=== PATIENT | male | born 1965 | race Caucasian/White ===

== ENCOUNTER 2017-09-15 05:05 | Inpatient (IN) | payer BC ==
[2017-09-15] VITALS (16 sets, daily range): BP systolic 101–129; BP diastolic 60–83
[~2017-09-15] VITALS: Ht 167.6 cm; Wt 61.9 kg
[~2017-09-15 05:05] MED LIST: CLEOCIN300 MG PO; GLUCOTROL XL2.5 MG PO; LORTAB 5-325 M1 EACH PO; METFORMIN HCL1000 MG PO; NAPROSYN500 MG PO; SILVADENE20 GM TP
[2017-09-15 05:46] LABS: MEAN PLAT.VOLUME 10.8 uM^3 (9.0-12.4); PLATELET COUNT 491 K/uL (156-360)
[2017-09-15 05:49] LABS: CHLORIDE 104 mEq/L (99-109); POTASSIUM 4.9 mEq/L (3.7-5.4); SODIUM 135 mEq/L (136-147)
[2017-09-15 05:52] LABS: ANION GAP 29 MEQ/L (2-14)
[2017-09-15 05:54] LABS: GFR ESTIMATE (CALCULATED) 42 mL/min/; HEMATOCRIT 42.2 % (38.0-50.0); MCH 29.8 PG (29.0-34.0); MCHC 31.8 G/DL (30.0-36.0); MCV 93.8 FL (86-99); RBC DIS.WIDTH-CV 12.2 % (11.8-14.6); RBC DIS.WIDTH-SD 42.3 % (39-53)
[2017-09-15 05:55] LABS: UREA NITROGEN (BUN) 26 mg/dL (9-23)
[2017-09-15 05:56] LABS: GLUCOSE 622 mg/dL (70-99)
[2017-09-15 06:20] LABS: CARBON DIOXIDE (BICARBONATE) < 10.0 mEq/L (20-31)
[2017-09-15 06:23] LABS: TOTAL BILIRUBIN 0.2 mg/dL (0.0-1.0)
[2017-09-15 06:24] LABS: ALKALINE PHOSPHATASE 144 IU/L (3-129); SERUM ETHYL ALCOHOL < 10 mg/dL
[2017-09-15 06:27] LABS: SALICYLATE < 5.0 MG/DL (15-30)
[2017-09-15 06:28] LABS: LIPASE 16 U/L (1.0-51.0)
[2017-09-15 06:29] LABS: CARBOXY HGB 0 % (0-5); COMMENTS - BLOOD GASES A+C+; DEVICE RA; METHEMOGLOBIN 0.5 % (0-1.5); PCO2 < 20 mm Hg (35-45); PO2 161 mm Hg (80-100); SITE RR; TOTAL RESP RATE 25 resp/min; pH < 6.91 (7.35-7.45)
[2017-09-15 06:48] LABS: INTER. NORMALIZED RATIO 1.2; PROTHROMBIN TIME 13.4 SEC (10.2-12.9)
[2017-09-15 06:51] LABS: PTT 34.3 SEC (25-37)
[2017-09-15 07:01] LABS: VENOUS PCO2 < 20 mm Hg (41-51)
[2017-09-15 07:11] LABS: CARBON DIOXIDE (BICARBONATE) < 10.0 MEQ/L (20-31)
[2017-09-15 07:30] LABS: POINT-OF-CARE METER ID UU13113747
[2017-09-15 07:30] LABS: POINT-OF-CARE METER ID UU13113778
[2017-09-15 08:02] LABS: Estimated Average Glucose 381 mg/dL (70-123); HEMOGLOBIN A1c (GLYCOHEMOGLOB) 14.9 % HGB (Below 5.7)
[2017-09-15 08:37] LABS: CHLORIDE 109 mEq/L (99-109); POTASSIUM 4.7 mEq/L (3.7-5.4); SODIUM 139 mEq/L (136-147)
[2017-09-15 08:40] LABS: ANION GAP 28 MEQ/L (2-14)
[2017-09-15 08:42] LABS: GFR ESTIMATE (CALCULATED) 52 mL/min/
[2017-09-15 08:43] LABS: GLUCOSE 645 mg/dL (70-99); UREA NITROGEN (BUN) 29 mg/dL (9-23)
[2017-09-15 09:13] LABS: POINT-OF-CARE METER ID UU13113747
[2017-09-15 10:28] LABS: METH RESISTANT S AUREUS PCR NEGATIVE (NEGATIVE); PROBE CHECK PASS; SPECIMEN PROCESSING CONTROL PASS
[2017-09-15 11:04] LABS: HIV INDEX 0.14; HIV-1/2 AB/AG COMBO Nonreactive
[2017-09-15 11:37] LABS: POINT-OF-CARE METER ID UU14314083
[2017-09-15 12:08] LABS: ANION GAP 26 MEQ/L (2-14); CHLORIDE 112 MEQ/L (99-109); GLUCOSE 392 mg/dL (70-99); POTASSIUM 4.3 MEQ/L (3.7-5.4); SAMPLE HEMOLYSIS CHECK 0; SAMPLE ICTERIC CHECK 0; SAMPLE LIPEMIA CHECK 0; SODIUM 143 MEQ/L (136-147); UREA NITROGEN (BUN) 28 mg/dL (9-23)
[2017-09-15 12:09] LABS: GFR ESTIMATE (CALCULATED) > 59 mL/min/
[2017-09-15 12:11] LABS: POINT-OF-CARE METER ID UU14314083
[2017-09-15 13:22] LABS: POINT-OF-CARE METER ID UU14314083
[2017-09-15 14:26] LABS: POINT-OF-CARE METER ID UU14314083
[2017-09-15 15:39] LABS: POINT-OF-CARE METER ID UU14314083
[2017-09-15 16:37] LABS: ANION GAP 12 MEQ/L (2-14); CHLORIDE 117 MEQ/L (99-109); GFR ESTIMATE (CALCULATED) > 59 mL/min/; GLUCOSE 217 mg/dL (70-99); SAMPLE HEMOLYSIS CHECK 0; SAMPLE ICTERIC CHECK 0; SAMPLE LIPEMIA CHECK 0; SODIUM 141 MEQ/L (136-147); UREA NITROGEN (BUN) 27 mg/dL (9-23)
[2017-09-15 16:40] LABS: POINT-OF-CARE METER ID UU14314083
[2017-09-15 17:25] LABS: POINT-OF-CARE METER ID UU14314083
[2017-09-15 18:31] LABS: POINT-OF-CARE METER ID UU14208751
[2017-09-15 19:45] LABS: POINT-OF-CARE METER ID UU14208751
[2017-09-15 20:18] LABS: ANION GAP 8 MEQ/L (2-14); CHLORIDE 115 MEQ/L (99-109); POTASSIUM 3.6 MEQ/L (3.7-5.4); SAMPLE HEMOLYSIS CHECK 0; SAMPLE ICTERIC CHECK 0; SAMPLE LIPEMIA CHECK 0; SODIUM 138 MEQ/L (136-147)
[2017-09-15 20:23] LABS: GFR ESTIMATE (CALCULATED) > 59 mL/min/; GLUCOSE 223 mg/dL (70-99); UREA NITROGEN (BUN) 24 mg/dL (9-23)
[2017-09-15 20:40] LABS: POINT-OF-CARE METER ID UU14208751
[2017-09-15 21:39] LABS: POINT-OF-CARE METER ID UU14208751
[2017-09-15 22:34] LABS: POINT-OF-CARE METER ID UU13113803
[2017-09-15] MEDS ORDERED: METFORMIN HCL1000 MG PO (22:56)
[2017-09-15] MEDS ORDERED: GLIPIZIDE5 MG PO (22:56)
[2017-09-16] VITALS (21 sets, daily range): BP systolic 112–159; BP diastolic 77–105
[2017-09-16 00:48] LABS: CHLORIDE 117 mEq/L (99-109); SODIUM 137 mEq/L (136-147)
[2017-09-16 00:50] LABS: GLUCOSE 192 mg/dL (70-99)
[2017-09-16 00:51] LABS: ANION GAP 8 MEQ/L (2-14)
[2017-09-16 00:54] LABS: GFR ESTIMATE (CALCULATED) > 59 mL/min/
[2017-09-16 00:55] LABS: UREA NITROGEN (BUN) 25 mg/dL (9-23)
[2017-09-16 04:34] LABS: CHLORIDE 108 mEq/L (99-109); POTASSIUM 3.5 mEq/L (3.7-5.4)
[2017-09-16 04:35] LABS: GLUCOSE 215 mg/dL (70-99)
[2017-09-16 04:40] LABS: UREA NITROGEN (BUN) 20 mg/dL (9-23)
[2017-09-16 04:41] LABS: GFR ESTIMATE (CALCULATED) > 59 mL/min/
[2017-09-16 04:46] LABS: SODIUM 138 mEq/L (136-147)
[2017-09-16 04:49] LABS: ANION GAP 10 MEQ/L (2-14)
[2017-09-16 08:23] LABS: POINT-OF-CARE METER ID UU14162636
[2017-09-16 09:47] LABS: ANION GAP 9 MEQ/L (2-14); CHLORIDE 112 MEQ/L (99-109); GFR ESTIMATE (CALCULATED) > 59 mL/min/; GLUCOSE 219 mg/dL (70-99); POTASSIUM 3.7 MEQ/L (3.7-5.4); SAMPLE HEMOLYSIS CHECK 0; SAMPLE ICTERIC CHECK 0; SAMPLE LIPEMIA CHECK 0; SODIUM 138 MEQ/L (136-147); UREA NITROGEN (BUN) 23 mg/dL (9-23)
[2017-09-16 10:05] LABS: POINT-OF-CARE METER ID UU14314083
[2017-09-16 10:05] LABS: POINT-OF-CARE METER ID UU14314083
[2017-09-16] MEDS ORDERED: ADVIL,NUPRIN,M200 MG PO (12:08)
[2017-09-16] MEDS ORDERED: ALPHA LIPOIC A100 MG PO (12:08)
[2017-09-16] MEDS ORDERED: VITAMIN B122500 MCG PO (12:08)
[2017-09-16 12:21] LABS: POINT-OF-CARE METER ID UU14162636
[2017-09-16 13:50] LABS: ANION GAP 10 MEQ/L (2-14); CHLORIDE 113 MEQ/L (99-109); GFR ESTIMATE (CALCULATED) > 59 mL/min/; GLUCOSE 193 mg/dL (70-99); SAMPLE HEMOLYSIS CHECK 0; SAMPLE ICTERIC CHECK 0; SAMPLE LIPEMIA CHECK 0; SODIUM 140 MEQ/L (136-147); UREA NITROGEN (BUN) 22 mg/dL (9-23)
[2017-09-16 16:17] LABS: ANION GAP 6 MEQ/L (2-14); CHLORIDE 112 MEQ/L (99-109); GFR ESTIMATE (CALCULATED) > 59 mL/min/; GLUCOSE 204 mg/dL (70-99); POTASSIUM 3.7 MEQ/L (3.7-5.4); SAMPLE HEMOLYSIS CHECK 0; SAMPLE ICTERIC CHECK 0; SAMPLE LIPEMIA CHECK 0; SODIUM 138 MEQ/L (136-147); UREA NITROGEN (BUN) 20 mg/dL (9-23)
[2017-09-16 17:07] LABS: MAGNESIUM 1.9 mg/dl (1.3-2.7)
[2017-09-16 17:09] LABS: POINT-OF-CARE METER ID UU14162636
[2017-09-16 20:34] LABS: ANION GAP 5 MEQ/L (2-14); CHLORIDE 113 MEQ/L (99-109); GFR ESTIMATE (CALCULATED) > 59 mL/min/; GLUCOSE 134 mg/dL (70-99); POTASSIUM 3.6 MEQ/L (3.7-5.4); SAMPLE HEMOLYSIS CHECK 0; SAMPLE ICTERIC CHECK 0; SAMPLE LIPEMIA CHECK 0; SODIUM 139 MEQ/L (136-147); UREA NITROGEN (BUN) 20 mg/dL (9-23)
[2017-09-16 22:01] LABS: POINT-OF-CARE METER ID UU13113725
[2017-09-17 05:54] LABS: POINT-OF-CARE METER ID UU13113774
[2017-09-17 07:25] VITALS: BP 128/82
[2017-09-17 10:53] LABS: EOSINOPHIL (%) 0.2 % (0-5); HEMATOCRIT 31.1 % (38.0-50.0); IMMATURE GRANULOCYTE COUNT 0.1 K/uL; INSTRUMENT ABS NEUTROPHIL CT 7.2 K/uL; LYMPHOCYTE COUNT 1.3 K/uL (1.0-2.8); MCH 30.1 PG (29.0-34.0); MCHC 35.4 G/DL (30.0-36.0); MONOCYTE (%) 10.2 % (3-12); NEUTROPHIL (%) 75.2 % (45-76); NEUTROPHIL COUNT 7.2 K/uL (1.8-6.4); RBC DIS.WIDTH-CV 12.7 % (11.8-14.6); RBC DIS.WIDTH-SD 39.3 % (39-53); RED BLOOD COUNT 3.65 M/uL (4.00-5.50); WHITE BLOOD COUNT 9.5 K/uL (4.1-10.2)
[2017-09-17 11:00] LABS: MCV 85.2 FL (86-99)
[2017-09-17 11:11] LABS: MEAN PLAT.VOLUME 9.9 uM^3 (9.0-12.4); PLAT.SUFFICIENCY ADEQUATE
[2017-09-17 11:16] LABS: PLATELET COUNT 271 K/uL (156-360)
[2017-09-17 11:19] LABS: ANION GAP 5 MEQ/L (2-14); CHLORIDE 108 MEQ/L (99-109); POTASSIUM 3.8 MEQ/L (3.7-5.4); SAMPLE HEMOLYSIS CHECK 0; SAMPLE ICTERIC CHECK 0; SAMPLE LIPEMIA CHECK 0; SODIUM 140 MEQ/L (136-147)
[2017-09-17 11:24] LABS: GFR ESTIMATE (CALCULATED) > 59 mL/min/; GLUCOSE 197 mg/dL (70-99); UREA NITROGEN (BUN) 14 mg/dL (9-23)
[2017-09-17 11:33] LABS: POINT-OF-CARE METER ID UU13113725
[2017-09-17 15:20] VITALS: BP 131/78
[2017-09-17 16:56] LABS: POINT-OF-CARE METER ID UU13113774
[2017-09-17 20:54] LABS: POINT-OF-CARE METER ID UU13113725
[2017-09-18 00:02] VITALS: BP 126/74
[2017-09-18 06:03] LABS: POINT-OF-CARE METER ID UU13113774
[2017-09-18 06:19] LABS: EOSINOPHIL (%) 0.9 % (0-5); EOSINOPHIL COUNT 0.1 K/uL (0-0.3); HEMATOCRIT 31.2 % (38.0-50.0); IMMATURE GRANULOCYTE COUNT 0.1 K/uL; INSTRUMENT ABS NEUTROPHIL CT 3.3 K/uL; LYMPHOCYTE COUNT 1.7 K/uL (1.0-2.8); MCH 29.4 PG (29.0-34.0); MCHC 34.6 G/DL (30.0-36.0); MEAN PLAT.VOLUME 9.9 uM^3 (9.0-12.4); MONOCYTE (%) 12.7 % (3-12); MONOCYTE COUNT 0.7 K/uL (0-0.8); NEUTROPHIL (%) 56.1 % (45-76); NEUTROPHIL COUNT 3.3 K/uL (1.8-6.4); PLATELET COUNT 286 K/uL (156-360); RBC DIS.WIDTH-CV 12.3 % (11.8-14.6); RBC DIS.WIDTH-SD 38.1 % (39-53); RED BLOOD COUNT 3.67 M/uL (4.00-5.50); WHITE BLOOD COUNT 5.8 K/uL (4.1-10.2)
[2017-09-18 06:42] LABS: ANION GAP 6 MEQ/L (2-14); CHLORIDE 106 MEQ/L (99-109); GFR ESTIMATE (CALCULATED) > 59 mL/min/; GLUCOSE 167 mg/dL (70-99); POTASSIUM 3.9 MEQ/L (3.7-5.4); SAMPLE HEMOLYSIS CHECK 0; SAMPLE ICTERIC CHECK 0; SAMPLE LIPEMIA CHECK 0; SODIUM 142 MEQ/L (136-147); UREA NITROGEN (BUN) 14 mg/dL (9-23)
[2017-09-18 08:52] VITALS: BP 139/87
[2017-09-18 11:36] LABS: POINT-OF-CARE METER ID UU13113774
[2017-09-18 16:10] VITALS: BP 121/64
[2017-09-18 16:44] LABS: POINT-OF-CARE METER ID UU13113725
[2017-09-18 20:51] LABS: POINT-OF-CARE METER ID UU13113725
[2017-09-19 00:23] VITALS: BP 130/84
[2017-09-19 06:00] LABS: POINT-OF-CARE METER ID UU13113774
[2017-09-19 06:12] LABS: EOSINOPHIL (%) 1.3 % (0-5); EOSINOPHIL COUNT 0.1 K/uL (0-0.3); HEMATOCRIT 30.8 % (38.0-50.0); IMMATURE GRANULOCYTE (%) 1.9 % (0.0-0.7); IMMATURE GRANULOCYTE COUNT 0.1 K/uL; INSTRUMENT ABS NEUTROPHIL CT 2.6 K/uL; LYMPHOCYTE COUNT 1.8 K/uL (1.0-2.8); MCHC 34.1 G/DL (30.0-36.0); MCV 85.1 FL (86-99); MEAN PLAT.VOLUME 9.8 uM^3 (9.0-12.4); MONOCYTE COUNT 0.6 K/uL (0-0.8); NEUTROPHIL (%) 49.4 % (45-76); NEUTROPHIL COUNT 2.6 K/uL (1.8-6.4); PLATELET COUNT 275 K/uL (156-360); RBC DIS.WIDTH-CV 11.9 % (11.8-14.6); RBC DIS.WIDTH-SD 36.6 % (39-53); RED BLOOD COUNT 3.62 M/uL (4.00-5.50); WHITE BLOOD COUNT 5.3 K/uL (4.1-10.2)
[2017-09-19 06:30] LABS: CHLORIDE 103 MEQ/L (99-109); SODIUM 141 MEQ/L (136-147)
[2017-09-19 07:36] VITALS: BP 135/87
[2017-09-19 07:57] LABS: ANION GAP 7 MEQ/L (2-14); GFR ESTIMATE (CALCULATED) > 59 mL/min/; GLUCOSE 218 mg/dL (70-99); SAMPLE HEMOLYSIS CHECK 0; SAMPLE ICTERIC CHECK 0; SAMPLE LIPEMIA CHECK 0; UREA NITROGEN (BUN) 13 mg/dL (9-23)
[2017-09-19 12:08] LABS: POINT-OF-CARE METER ID UU13113725
[2017-09-19 15:26] VITALS: BP 128/79
[2017-09-19 16:32] LABS: POINT-OF-CARE METER ID UU13113774
[2017-09-19 21:53] LABS: POINT-OF-CARE METER ID UU13113774
[2017-09-19 23:40] VITALS: BP 136/85
[2017-09-20 06:04] LABS: POINT-OF-CARE METER ID UU13113774
[2017-09-20 11:48] LABS: POINT-OF-CARE METER ID UU13113725
[2017-09-20 16:59] LABS: POINT-OF-CARE METER ID UU13113725
[2017-09-21 00:31] VITALS: BP 130/79
[2017-09-21 07:25] VITALS: BP 133/85
[2017-09-21 12:18] LABS: POINT-OF-CARE METER ID UU13113774
[2017-09-21 15:37] VITALS: BP 138/84
[2017-09-21 16:31] LABS: POINT-OF-CARE METER ID UU13113774
[2017-09-21 21:46] LABS: POINT-OF-CARE METER ID UU13113725
[2017-09-22 00:16] VITALS: BP 138/78
[2017-09-22 06:14] LABS: POINT-OF-CARE METER ID UU13113725
[2017-09-22 07:58] VITALS: BP 144/81
[2017-09-22 10:02] LABS: HEMATOCRIT 32.5 % (38.0-50.0); MCH 29.1 PG (29.0-34.0); MCHC 33.2 G/DL (30.0-36.0); MCV 87.6 FL (86-99); MEAN PLAT.VOLUME 10.1 uM^3 (9.0-12.4); PLATELET COUNT 312 K/uL (156-360); RBC DIS.WIDTH-CV 11.9 % (11.8-14.6); RBC DIS.WIDTH-SD 37.9 % (39-53); RED BLOOD COUNT 3.71 M/uL (4.00-5.50); WHITE BLOOD COUNT 5.3 K/uL (4.1-10.2)
[2017-09-22 10:27] LABS: ANION GAP 7 MEQ/L (2-14); CHLORIDE 99 MEQ/L (99-109); GFR ESTIMATE (CALCULATED) > 59 mL/min/; GLUCOSE 309 mg/dL (70-99); POTASSIUM 4.3 MEQ/L (3.7-5.4); SAMPLE HEMOLYSIS CHECK 0; SAMPLE ICTERIC CHECK 0; SAMPLE LIPEMIA CHECK 0; SODIUM 137 MEQ/L (136-147); UREA NITROGEN (BUN) 13 mg/dL (9-23)
[2017-09-22 11:25] LABS: POINT-OF-CARE METER ID UU13113725
[2017-09-22] MEDS ORDERED: METFORMIN HCL1000 MG PO (13:14)
[2017-09-22] MEDS ORDERED: JANUVIA100 MG PO (13:14)
[2017-09-22] MEDS ORDERED: GLIPIZIDE10 MG PO (13:14)
[2017-09-22 16:21] LABS: POINT-OF-CARE METER ID UU13113725
[2017-09-22 17:00] VITALS: BP 142/84
== END 2017-09-22 17:57 | disposition home or self-care (01) | DRG 638 ==
LOC: EME 05:05 → EDOF 07:13 → 4WEST 07:13 → 5EAST 07:13 → ENRESERV 07:14 → 4WEST 08:41 → ENRESERV 09-16 → 4WEST 09-16 16:56 → ENRESERV 09-16 16:56 → 4WEST 09-16 17:35 → 5EAST 09-16 20:10
PROVIDERS: Emergency Medicine; Hospitalist; Obstetrics & Gynecology; Specialist; Student in an Organized Health Care Education/Training Program
PROC: 0S9D3ZZ Drainage of Left Knee Joint, Percutaneous Approach (ICD-10-PCS; principal; 2017-09-15)
DX: E11.10 Type 2 diabetes mellitus with ketoacidosis without coma (principal); R78.81 Bacteremia; B37.0 Candidal stomatitis; L03.116 Cellulitis of left lower limb; N17.9 Acute kidney failure, unspecified; R64 Cachexia; Z68.1 Body mass index [BMI] 19.9 or less, adult; B95.61 Methicillin susceptible Staphylococcus aureus infection as the cause of diseases classified elsewhere; I25.10 Atherosclerotic heart disease of native coronary artery without angina pectoris; M25.462 Effusion, left knee; M71.162 Other infective bursitis, left knee; E11.65 Type 2 diabetes mellitus with hyperglycemia; Z79.84 Long term (current) use of oral hypoglycemic drugs
CPT/HCPCS: 36600; 70450; 71020; 73564; 80048; 80048 91; 80053; 81003; 82140; 82803; 82948; 83036; 83605; 83690; 83735; 84100; 85025; 85027; 85610; 85651; 85730; 86140; 86703; 87040; 87077; 87186; 87502; 87641; 87801; 93005; 99281; 99285; C1753; G0480; J0690; J1650; J1815; J1956; J2543; J3370; J7030; J7050; J7120